=== PATIENT | male | born 1985 | race Caucasian/White ===

== ENCOUNTER → 2020-12-18 | Day surgery (SDC) | payer BC ==
[~2020-12-18] MED LIST: FENTANYL CITRATE/PF 100MCG/2 ML INJ ONE; MIDAZOLAM HCL 2 MG/2 ML VIAL ONE; NEXIUM40 MG PO
[2020-12-18 12:50] VITALS: BP 131/89
== END | disposition home or self-care (01) ==
LOC: OR 10:23
PROVIDERS: ATTEND Internal Medicine Gastroenterology
DX: K29.70 Gastritis, unspecified, without bleeding (principal); K20.90 Esophagitis, unspecified without bleeding; K44.9 Diaphragmatic hernia without obstruction or gangrene; K22.8 Other specified diseases of esophagus; K21.9 Gastro-esophageal reflux disease without esophagitis; R03.0 Elevated blood-pressure reading, without diagnosis of hypertension; Z72.0 Tobacco use; Z01.810 Encounter for preprocedural cardiovascular examination; Z01.812 Encounter for preprocedural laboratory examination; Z20.822 Contact with and (suspected) exposure to COVID-19; Z68.35 Body mass index [BMI] 35.0-35.9, adult
CPT/HCPCS: 43239; 93005; J2250; J3010; U0002